=== PATIENT | female | born 1945 | race Caucasian/White ===

== ENCOUNTER 2018-10-08 18:07 | Emergency (ER) | payer MEDICARE, OTHER ==
[~2018-10-08] VITALS: Ht 167.6 cm; Wt 65.8 kg
[~2018-10-08 18:07] MED LIST: ADVAIR 100-501 EACH INH; ASPIR-LOW81 MG PO; CALCIUM + D3 E1 EACH; CATAPRES0.1 MG PO; CYCLOBENZAPRINE5 MG PO; DILT-XR120 MG PO; FOLIC ACID1 MG PO; HYDROCHLOROTH12.5 MG PO; INDERAL LA60 MG PO; LEVAQUIN500 MG PO; MELOXICAM15 MG PO; OCUVITE TABLET1 EAC1 PO; POTASSIUM CHLO20 ME1 PO; PRAVACHOL40 MG PO; PREDNISONE20 MG PO; PRILOSEC20 MG PO; PROPRANOLOL HCL20 MG PO; VENTOLIN HFA18 GM INH; VITAMIN B-12500 MCG PO; VITAMIN D400 UNI2 PO
[2018-10-08] MEDS ORDERED: INCRUSE ELLI62.5 MCG INH (18:48)
[2018-10-08] MEDS ORDERED: ELIQUIS5 MG PO (18:48)
[2018-10-08] MEDS ORDERED: FLECAINIDE ACET50 MG PO (18:48)
[2018-10-08] MEDS ORDERED: XOPENEX HFA15 GM INH (19:01)
[2018-10-08] MEDS ORDERED: NORCO 5-325 TA1 EACH PO (19:54)
== END 2018-10-08 20:10 | disposition home or self-care (01) ==
LOC: ED 18:07
DX: S16.1XXA Strain of muscle, fascia and tendon at neck level, initial encounter (principal); G44.309 Post-traumatic headache, unspecified, not intractable; J45.909 Unspecified asthma, uncomplicated; I10 Essential (primary) hypertension; I48.91 Unspecified atrial fibrillation; Z87.891 Personal history of nicotine dependence; Z90.710 Acquired absence of both cervix and uterus; Z91.018 Allergy to other foods; Z79.899 Other long term (current) drug therapy; W18.30XA Fall on same level, unspecified, initial encounter
CPT/HCPCS: 70450; 72125; 99284-25

== ENCOUNTER 2022-02-26 08:56 | Day surgery (SDC) | payer MEDICARE, OTHER ==
[~2022-02-26] VITALS: Ht 167.6 cm; Wt 63.0 kg
[~2022-02-26 08:56] MED LIST changes: +ALBUTEROL2.5 MG/3 M INH; +ALENDRONATE SOD70 MG PO; +AMOXICILLIN500 MG PO; -CALCIUM + D3 E1 EACH; +CALCIUM + D3 E1 EACH PO; +CIPRO500 MG PO; +CITALOPRAM HBR20 MG PO; +CLEAR EYES COOL15 ML OU; +ELIQUIS5 MG PO; +FLECAINIDE ACET50 MG PO; +FOSAMAX70 MG PO; +INCRUSE ELLI62.5 MCG INH; +LEVALBUTEROL TA15 GM INH; +LISINOPRIL10 MG PO; +LISINOPRIL20 MG PO; +LORATADINE10 MG PO; +MONTELUKAST SOD10 MG PO; +MUCUS ER600 M1 PO; +NORCO 5-325 TA1 EACH PO; +OMEPRAZOLE20 MG PO; +PRAVASTATIN SOD80 MG PO; +PRILOSEC OTC20 MG PO; -PRILOSEC20 MG PO; +PROPRANOLOL HCL10 MG PO; +SIMETHICONE125 M1 PO; +SINUS HEADACHE PO; +SYMBICORT 16010.2 GM INH; +TRIAMCINOLONE A15 GM TOP; +WARFARIN SODIUM3 MG PO; +WARFARIN SODIUM4 MG PO; +XOPENEX HFA15 GM INH
--- NOTE | 2022-02-26 14:29 | NUR ---
02/26/22 1429 Angélica Heredia 1415-PATIENT ARRIVED TO PACU ON RA RR EVEN PATIENT REACTIVE TO VERBAL STIMULI DRESSING TO LEFT BREAST CDI WITH LANDON DRAIN IN PLACE. SR WITH ST DEPRESSION. 1420-PATIENT PLACED ON 2L NC RR EVEN O2 SAT HAD DECREASED TO 87% ON RA. PATIENT REACTIVE TO VERBAL STIMULI. 1426-12 LEAD EKG COMPLETED. PATIENT REPORTS PAIN TO LEFT BREAST AND POINTS TO LEFT ARM.
[2022-02-26] MEDS ORDERED: OXYCODON-ACETA1 EAC2 PO (14:40)
[2022-02-26] MEDS ORDERED: IBUPROFEN600 MG PO (14:40)
[2022-02-26] MEDS ORDERED: ACETAMINOPHEN500 MG PO (14:40)
--- NOTE | 2022-02-26 15:25 | NUR ---
BEDSIDE REPORT FROM EMERITA RN, PATIENT RESTING WITH EYES CLOSED. DRESSING TO LEFT BREAST HAS SMALL AMOUNT OF DRAINAGE, DRAINS INTACT X 2. PROVIDED SNACKS AND WATER. CALL LIGHT WITHIN REACH. VAHE FROM [facility] NOTIFIED PATIENT BACK TO ROOM AND PLANS TO FIT PATIENT FOR EDU. PATIENT NOT TO LEAVE UNTIL DR. BERGER IS ABLE TO TALK WITH PATIENT ONCE MORE AWAKE.
--- NOTE | 2022-02-26 16:25 | NUR ---
PATIENT ALERT AND AWAKE, EATING CRACKERS AND PUDDING. ADMINISTERED PAIN MEDICAITON PER MAR. REPORTS PAIN SHARP 9/10 ON PAIN SCALE, STATES "MY LEFT BREAST IS SCREAMING AT ME". ICE IN PLACE. VS WNL. DRESSING INTACT WITH NO NEW DRAINAGE. LANDON 1 & 2 NOTED RED DRAINAGE. PROVIDED EDUCATION WITH EMPTYING DRAINS, PATIENT ABLE TO DEMONSTRATE CARE OF DRAINS.
--- NOTE | 2022-02-26 16:59 | NUR ---
PATIENT SAT AT EDGE OF BED, EDU SUPPORT ON PATIENT. PATIENT STATED "THE PAIN IS BETTER WITH THE EDU ON, NOT SO INTENSE" PLACED LANDON DRAINS IN WHITE SLEEVES THAT VELCRO INTO EDU. ANSWERED QUESTIONS AND CONCERNS WITH LANDON DRAINS. DR. BERGER INTO ROOM VISITING WITH PATIENT AND SISTER IN LAW. PATIENT RESTING BACK IN BED NOW, REQUESTED 20 MORE MINUTES AND THEN WILL AMBULATE TO BATHROOM. CALL LIGHT WITHIN REACH.
--- NOTE | 2022-02-26 17:38 | NUR ---
PROVIDED PATIENT AND FAMILY WITH DISCHARGE INSTRUCTION, ANSWERED QUESTIONS AND CONCERNS. PROVIDED SECOND PAIN PILL PER PATIENT REQUEST FOR RIDE HOME. PATIENT RATES PAIN 4/10 ON PAIN SCALE. PATIENT THEN DRESSED SELF, ABLE TO MOVE ARM WELL, AMBULATED TO BATHROOM AND VOIDED 500 ML OF FLUID. APPEARED TO TOLERATE ACTIVITY WELL, NO GRIMACE TO FACE. PATIENT APPEARS RELAXED, SMILING AND LAUGHING. SCRIPT IN SISTER-IN LAWS HAND.
--- NOTE | 2022-02-27 00:28 | EKG ---
[facility] [address] [facility] [place] [address] Signed Normal sinus rhythm Left ventricular hypertrophy with repolarization abnormality Cannot rule out Septal infarct , age undetermined Abnormal ECG When compared with ECG of 30-JUL-2016 12:12, Vent. rate has increased BY 33 BPM Minimal criteria for Septal infarct are now present T wave inversion more evident in Inferior leads T wave inversion now evident in Anterior leads QT has lengthened Confirmed by LIV ADAMS MD ([id number]) on 02/27/2022 12:27:58 AM Electronically Signed By: LIV ADAMS MD 02/27/22 0028 PATIENT NAME: RODRIGO WHITTAKER Electrocardiogram DATE OF : 41 PHYSICIAN: LIV ADAMS MD REPORT #: [id number] REPORT IS CONFIDENTIAL AND NOT TO BE RELEASED WITHOUT AUTHORIZATION
--- NOTE | 2022-02-27 12:06 | OR ---
[facility] [address] [place], [place] [address] Signed DATE OF OPERATION: 02/26/2022 SURGEON: Rosanna Berger MD PREOPERATIVE DIAGNOSIS: Left upper inner infiltrating ductal breast carcinoma ER/PA positive, HER2/madelyn negative (less than 4 cm). POSTOPERATIVE DIAGNOSES: 1. Left upper inner infiltrating ductal breast carcinoma ER/PA positive, HER2/madelyn negative (less than 4 cm). 2. [place] lymph node biopsy positive for metastatic disease; additional axillary lymph nodes suspicious clinically. PROCEDURE: 1. Injection of methylene blue for sentinel lymph node identification. 2. Left deep axillary lymph node biopsy; SUBSEQUENT COMPLETE AXILLARY DISSECTION 3. Left partial mastectomy; additional oncoplastic closure including breast bipedicle flap advancement and skin reduction. 4. Completion axillary lymph node dissection ( level 2) ANESTHESIA: General endotracheal, Riley Brandon CRNA and local 10 mL of 0.25% Marcaine with epinephrine. INDICATION: This 76-year-old white woman is a patient of Dr. Sal Quezada. She was noted to have a breast lump on the medial upper aspect on the left side. It was relatively large, measuring clinically about 3 cm. She had no associated symptoms with it. She has noticed it there for more than a year. She underwent mammogram and subsequent biopsy by Dr. Liv Pandey confirming infiltrating ductal breast carcinoma, which was ER/PA positive and HER2/madelyn equivocal, though likely negative. Imaging studies including axillary ultrasound did show lymph nodes suspicious for metastatic disease, though not certainly so. She has had no nipple discharge, weight loss. She has had some right rib pain and tenderness and on that basis, a preoperative bone scan was obtained, which showed no evidence of metastatic disease. She has been presented options of management to include mastectomy versus partial mastectomy with radiation therapy as well as sentinel lymph node biopsy and possible axillary dissection depending on the pathologic findings. The risks of bleeding, infection, cosmetic deformity, and Electronically Signed By: ROSANNA BERGER MD 02/27/22 1206 PATIENT NAME: RODRIGO WHITTAKER OPERATIVE REPORT DATE OF : 41 REPORT #: [id number] PHYSICIAN: ROSANNA BERGER MD PCP: SAL QUEZADA DO REPORT IS CONFIDENTIAL AND NOT TO BE RELEASED WITHOUT AUTHORIZATION [facility] [address] [place], [place] [address] Signed other unforeseen complications were reviewed in detail with her. She understands and wished to proceed. FINDINGS: Radionuclide localization by Dr. Grant did show uptake of at least one dominant axillary lymph node. Methylene blue dye did localize a large node, which was clinically suspicious and proven positive for metastatic disease on frozen pathology. An additional lymph node excise concurrently with the index node was said to be negative under the interpretation of Dr. Valero, the pathologist. The remaining axilla had clinically suspicious nodes and on that basis, completion axillary dissection was undertaken. As regards the primary tumor, it was bulky and easily palpated in the upper inner aspect of the left breast. Wide resection was undertaken with a clinically negative margins. The specimen was oriented with a short stitch superior, long stitch lateral, and a double stitch on the deep margin. Excision included the pectoralis fascia. Closure of the primary wound required an oncoplastic techniques including pedicle advancement superiorly and inferiorly as well as excision of redundant skin in the superior aspect of the flap. Improved cosmesis was noted at conclusion. As regards the axilla, axillary dissection was undertaken to the level 2 at least with excision of multiple clinically suspicious nodes . The long thoracic and thoracodorsal neurovascular bundles were identified and preserved. There were no complications. BLOOD LOSS: Less than 50 mL in aggregate. DESCRIPTION OF PROCEDURE: The patient was brought to the operating room, given a general anesthetic by LMA technique. As there was leakage with LMA approach that device was removed and she was tracheally intubated and anesthesia proceeded with general endotracheal anesthesia. Preoperative antibiotic Ancef was given. Sequential compression device stockings used and heparin subcutaneously administered. She had already undergone radionuclide and localization of for sentinel lymph nodes in the left axilla. Review of the films confirmed at least one area of uptake that was reasonable. Injection of 1 cc of methylene blue dye was undertaken at the upper outer areolar margin . Preparation of the breast and axilla with a chlorhexidine solution was undertaken and draped sterilely. Interrogation of the left axilla with a C-Trak radionuclide probe with sterile cover was undertaken, the signal was relatively weak. The dominant site was chosen for incision, Electronically Signed By: ROSANNA BERGER MD 02/27/22 1206 PATIENT NAME: RODRIGO WHITTAKER OPERATIVE REPORT DATE OF : 41 REPORT #: [id number] PHYSICIAN: ROSANNA BERGER MD PCP: SAL QUEZADA DO REPORT IS CONFIDENTIAL AND NOT TO BE RELEASED WITHOUT AUTHORIZATION [address] [address] Signed which was in the low axilla. A transverse incision was made with a 15 blade. Dissection was carried through the dermis with electrocautery. Using blunt and electrocautery dissection, the axillary soft tissue was and [employer] retractors used to more fully enter the axillary fat space. With the C-Trak probe with sterile cover, interrogation of the axilla was undertaken. With blunt dissection, lymphatic channels that were blue could be easily identified. They were followed to a relatively enlarged sentinel lymph node, which did uptake dye and which was hot on C-Trak probe interrogation. The substance of the lymph node was somewhat adherent other lymph nodes in the area and an Allis clamp was used to elevate the soft tissue and widely resect this. The index sentinel lymph node was clinically suspicious and there were other palpable lymph nodes within the axilla that were clinically suspicious as well. The specimen sent for pathology. The axillary wound was packed and attention turned towards the breast lesion proper. The lesion was located in the 10-11 o'clock position, was easily palpable, measured clinically about 3 cm or so. A curvilinear incision was made directly over it, which was about 4 cm from the areolar margin. Dissection was carried through the dermis with electrocautery. Using electrocautery, an inferior margin was defined and directed straight to the pectoralis fascia itself. A uniform margin was maintained. It was excised superiorly by elevating a flap. The bulky excised tissue was ultimately found to be 8 x 10 cm in size. A clinically negative margin was maintained. The specimen was oriented while in situ with a short stitch superior, long stitch lateral, and a double stitch in the deep aspect. Irrigation was undertaken. The pectoralis muscle did not appear to be grossly invaded, though the pectoralis fascia was excised in continuity with the specimen. It was clear that the defect of the left breast was significant for which an oncoplastic closure would be necessary. The wound was packed with gauze. By this time, frozen pathology was returned, which confirmed the largest lymph node positive for metastatic disease. The secondary lymph node noted with it was negative. On that basis, and in conjunction with the clinical impression of other axillary lymph nodes positive for metastatic disease, axillary dissection was deemed appropriate. Using sharp dissection, the axillary vein was identified at the apex of the axilla.The inferior, medial and lateral axillary boundaries were bluntly and sharply defined. The long thoracic and thoracodorsal neurovascular bundles were identified. The soft tissue of the axilla inferior to the Electronically Signed By: ROSANNA BERGER MD 02/27/22 1206 PATIENT NAME: WHITTAKERRODRIGO DODGE OPERATIVE REPORT DATE OF : 41 REPORT #: [id number] PHYSICIAN: ROSANNA BERGER MD PCP: SLA QUEZADA DO REPORT IS CONFIDENTIAL AND NOT TO BE RELEASED WITHOUT AUTHORIZATION [facility] [address], [place] [address] Signed vein and at least the level of the level 2 axillary dissection freed inferiorly. Clips were applied as appropriate to small vascular bundles. Ultimately, the axillary contents was fully excised and passed for permanent pathology. Irrigation was undertaken. There was no sign of untoward bleeding. Through a separate stab incision, a 7 mm Xavier drain was placed into the depths of the axilla. The axilla was later closed with interrupted 2-0 Vicryl, soft tissue and a running subcuticular 3-0 Vicryl for the skin. Examination of the primary excision site was once again undertaken. The defect was such that an oncoplastic closure was most advisable. Superior and inferior pedicles were elevated freeing the breast tissue from the pectoralis muscle. The level superiorly was approximately 8-10 cm and inferiorly about 6-8 cm. This allowed for advancement of the pedicles to be secured with interrupted 2-0 Vicryl. Through a stab incision in the inframammary crease, a 7 mm Xavier drain was placed in continuity with the chest wall. The parenchyma was reapproximated with interrupted 2-0 Vicryl. This, of course, left a reasonably large skin disparity. After marking the skin, a dome-shaped bat wing like excision of skin was undertaken on the superior flap. The skin was excised close to the breast parenchyma itself. This allowed for the inferior skin pedicle, including the nipple-areolar complex, to be advanced cephalad. The dermis was then closed with interrupted 2-0 Vicryl. Steri-Strips were applied to each wound as were Acticoat dressings. The axilla appear to be without bleeding and was closed with 2-0 vicryl and a running subcuticluar vicryl for the skin. Steri strips were applied as was an acticoat dressing. The drains were attached to bulb suction. Blood loss in aggregate was less than 50 mL. Sponge, needle, and instrument counts were reported as correct x3. MD SALVATORE Palacios/ELENA /[id number] cc: Dr. Grant Electronically Signed By: ROSANNA BERGER MD 02/27/22 1206 PATIENT NAME: RODRIGO WHITTAKER OPERATIVE REPORT DATE OF : 41 REPORT #: [id number] PHYSICIAN: RSOANNA BERGER MD PCP: SAL QUEZADA DO REPORT IS CONFIDENTIAL AND NOT TO BE RELEASED WITHOUT AUTHORIZATION [facility] [address] [place], [place] [address] Signed Pradip Nuñez MD, PH.D. Liv Pandey, MD Abdelrahman Doyle, MD Sal Quezada, Copies: PRADIP NUÑEZ,LIV DOYLE,SAL DEAN MD, DO ~ Electronically Signed By: ROSANNA BERGER MD 02/27/22 1206 PATIENT NAME: RODRIGO WHITTAKER OPERATIVE REPORT DATE OF : 41 REPORT #: [id number] PHYSICIAN: ROSANNA BERGER MD PCP: SAL QUEZADA DO REPORT IS CONFIDENTIAL AND NOT TO BE RELEASED WITHOUT AUTHORIZATION
== END 2022-02-26 17:25 | disposition home or self-care (01) ==
LOC: DS 08:56 → NUC 09:10 → EDSTATUS 09:10 → DS 09:10 → NUC 10:00 → DS 17:25
PROVIDERS: ATTEND Surgery
PROC: 0HBT0ZZ Excision of Right Breast, Open Approach (ICD-10-PCS; principal; 2022-02-26 11:00)
PROC: 07T50ZZ Resection of Right Axillary Lymphatic, Open Approach (ICD-10-PCS; 2022-02-26 11:00)
PROC: 0HBT0ZX Excision of Right Breast, Open Approach, Diagnostic (ICD-10-PCS; 2022-02-26 11:00)
DX: C50.212 Malignant neoplasm of upper-inner quadrant of left female breast (principal); C77.3 Secondary and unspecified malignant neoplasm of axilla and upper limb lymph nodes; Z17.0 Estrogen receptor positive status [ER+]
CPT/HCPCS: 01610; 78195; 93005; 93010; A9270; A9541; J0131; J0330; J0690; J1100; J1644; J2001; J2405; J2704; J2765; J3010; J7121; Q9968

== ENCOUNTER 2024-04-04 15:06 | Emergency (ER) | payer MEDICARE, OTHER ==
[~2024-04-04] VITALS: Ht 167.6 cm; Wt 63.1 kg
[~2024-04-04 15:06] MED LIST changes: +ACETAMINOPHEN500 MG PO; +ARIMIDEX1 MG PO; +AZITHROMYCIN500 MG PO; +CIPROFLOXACIN250 MG PO; +GEMTESA75 MG PO; +IBUPROFEN600 MG PO; +MAGNESIUM400 MG PO; +OXYCODON-ACETA1 EAC2 PO; +SERTRALINE HCL50 MG PO; +VITAMIN B-122500 MCG PO; -VITAMIN B-12500 MCG PO
[2024-04-04 15:22] LABS: BASOPHILS 0.9 % (0-2); EOSINOPHILS 2.2 % (0-6); HEMOGLOBIN 10.7 g/dL (12.0-18.0); LYMPHOCYTES 36.3 % (24-44); MCH 30.6 (27-36); MCHC 34.5 g/dl (30-36); MCV 88.7 fl (81-99); MONOCYTES 6.5 % (0-12); NEUTROPHILS 54.1 % (39-80); PLATELET COUNT 203 K/uL (140-440); RDW 13.9 (10.5-15.0)
[2024-04-04] MEDS ORDERED: DOPamine 400 MG/D5W 250 ML IV SCH (15:30)
[2024-04-04 15:35] LABS: ALBUMIN 3.3 g/dL (3.4-5.0); ALBUMIN/GLOBULIN RATIO 0.83 (1.1-2.4); ANION GAP 15.7 (7-21); BILIRUBIN, TOTAL 0.5 ng/dL (0.2-1.0); BUN/CREATININE RATIO 24.75 (6.0-28.6); CALCIUM 9.3 mg/dL (8.5-10.1); CREATININE, SERUM 1.01 mg/dL (0.55-1.02); MAGNESIUM 1.4 mg/dL (1.8-2.4); POTASSIUM 3.7 mmol/L (3.5-5.1); PROTEIN, TOTAL 7.3 g/dL (6.4-8.2)
[2024-04-04 19:00] VITALS: BP 113/62
--- NOTE | 2024-04-06 12:28 | EKG ---
[facility] [address] [place] [address] Signed Normal sinus rhythm Minimal voltage criteria for LVH, may be normal variant ( R in aVL ) Nonspecific ST and T wave abnormality Abnormal ECG When compared with ECG of 04-APR-2024 15:04, (Unconfirmed) Sinus rhythm is no longer with 2nd degree AV block (Mobitz I) ST no longer depressed in Anterior leads T wave inversion less evident in Inferior leads QT has lengthened Confirmed by Apolinar Peters ([id number]) on 04/06/2024 12:28:10 PM Electronically Signed By: APLOINAR PETERS MD 04/06/24 1228 PATIENT NAME: RODRIGO WHITTAKER Electrocardiogram DATE OF : 41 PHYSICIAN: APOLINAR PETERS MD REPORT #: [id number] REPORT IS CONFIDENTIAL AND NOT TO BE RELEASED WITHOUT AUTHORIZATION
--- NOTE | 2024-04-06 12:28 | EKG ---
[facility] [address] [facility] [place], [place] [address] Signed Sinus tachycardia with 2nd degree AV block (Mobitz I) Marked ST abnormality, possible inferior subendocardial injury Abnormal ECG No previous ECGs available Confirmed by Apolinar Petres ([id number]) on 04/06/2024 12:27:59 PM Electronically Signed By: APOLINAR PETERS MD 04/06/24 1228 PATIENT NAME: RODRIGO WHITTAKER MARK Electrocardiogram DATE OF : 41 PHYSICIAN: APOLINAR PETERS MD REPORT #: [id number] REPORT IS CONFIDENTIAL AND NOT TO BE RELEASED WITHOUT AUTHORIZATION
== END 2024-04-04 19:00 | disposition short-term general hospital (02) ==
LOC: ED 15:06
PROVIDERS: Emergency Medicine
DX: R00.1 Bradycardia, unspecified (principal); J43.9 Emphysema, unspecified; I10 Essential (primary) hypertension; I48.91 Unspecified atrial fibrillation; Z79.01 Long term (current) use of anticoagulants; Z79.899 Other long term (current) drug therapy; Z87.891 Personal history of nicotine dependence; Z88.8 Allergy status to other drugs, medicaments and biological substances; Z91.018 Allergy to other foods
CPT/HCPCS: 36415; 51702; 71045; 80053; 83735; 84484; 85025; 93005; 93010; 99285-25; J1265

== ENCOUNTER 2025-05-01 17:04 | Emergency (ER) | payer MEDICARE, OTHER ==
[~2025-05-01] VITALS: Ht 167.6 cm; Wt 60.0 kg
[~2025-05-01 17:04] MED LIST changes: +MIRTAZAPINE15 MG PO; +PROPRANOLOL HCL60 MG PO; +TROSPIUM CHLORI20 MG PO
[2025-05-01] MEDS ORDERED: ASPIRIN 81 MG CHEW PO ONE (17:15)
[2025-05-01 17:18] LABS: BASOPHILS 0.6 % (0.1-1.2); EOSINOPHILS 1.2 % (0.7-5.8); LYMPHOCYTES 34.9 % (19.3-51.7); MCH 29.8 PG (25.6-32.2); MCHC 32.9 g/dL (32.2-35.5); MCV 90.7 fL (79.4-94.8); MONOCYTES 5.8 % (4.7-12.5); NEUTROPHILS 57.3 % (34.0-71.1); RBC 3.89 M/uL (3.93-5.22)
[2025-05-01] MEDS ORDERED: SODIUM CHLORIDE 0.9% 500 ML IV PRN ×2 (17:30→18:00)
[2025-05-01 17:35] LABS: INR 1.36 (0.80-1.30); PROTIME 15.9 Sec (11.2-14.2)
[2025-05-01 17:38] LABS: ALT (SGPT) 15.0 U/L (14-59); AST (SGOT) 17.0 U/L (15-37); GLOMERULAR FILTRATION RATE,EST 10.0 mL/min (>60); PROTEIN, TOTAL 8.1 g/dL (6.4-8.2)
[2025-05-01 17:49] LABS: UREA NITROGEN 163.0 mg/dL (7-18)
[2025-05-01 21:52] VITALS: BP 107/64
--- NOTE | 2025-05-02 07:35 | EKG ---
[facility] [address] [facility] [place] [address] Signed Normal sinus rhythm Left ventricular hypertrophy with repolarization abnormality ( Sokolow-Kelly ) Abnormal ECG No previous ECGs available Confirmed by NISHA TREADWELL MD ([id number]) on 05/02/2025 7:35:42 AM Electronically Signed By: NISHA TREADWELL 05/02/25 0735 PATIENT NAME: RODRIGO WHITTAKER Electrocardiogram DATE OF : 41 PHYSICIAN: NISHA TREADWELL REPORT #: [id number] REPORT IS CONFIDENTIAL AND NOT TO BE RELEASED WITHOUT AUTHORIZATION
== END 2025-05-01 21:54 | disposition short-term general hospital (02) ==
LOC: ED 17:04
PROVIDERS: Emergency Medicine
DX: N17.9 Acute kidney failure, unspecified (principal); R00.2 Palpitations; I48.91 Unspecified atrial fibrillation; I10 Essential (primary) hypertension; J43.9 Emphysema, unspecified; Z95.0 Presence of cardiac pacemaker; Z87.891 Personal history of nicotine dependence; Z91.018 Allergy to other foods; Z88.8 Allergy status to other drugs, medicaments and biological substances; Z79.01 Long term (current) use of anticoagulants; Z79.899 Other long term (current) drug therapy
CPT/HCPCS: 36415; 71045; 80053; 83735; 84484; 85025; 85610; 93005; 93010; 99285-25; J7040